=== PATIENT | male | born 1950 | race Caucasian/White ===

== ENCOUNTER 2016-08-06 05:00 | Inpatient (IN) | payer MEDICARE, OTHER ==
[2016-07-14 08:53] VITALS: BMI 39.0
--- NOTE | 2016-07-14 09:33 | PAT Medication Instructions ---
Service Date Jul 14, 2016. Current Home Medication List Amlodipine (Norvasc), 5 MG PO QAM Cholecalciferol (Vitamin D3), Unknown Dose PO QAM Fish Oil ([place]-3), 2 TAB PO QAM Pantoprazole (Protonix), 40 MG PO EVERY OTHER DAY Medication Instructions For Your Scheduled Surgery - Hold the following medications 2 weeks prior to surgery: Fish Oil ([place]-3), 2 TAB PO QAM - Hold the following medications the morning of surgery: Cholecalciferol (Vitamin D3), Unknown Dose PO QAM - Take the following medications the morning of surgery with a sip of water: Pantoprazole (Protonix), 40 MG PO EVERY OTHER DAY Amlodipine (Norvasc), 5 MG PO QAM If you have any questions please call us at [phone] or [phone] ( [place]) or [phone]
--- NOTE | 2016-07-14 10:19 | DIAGNOSTIC IMAGING REPORT ---
CHEST PREADMISSION(PA/LAT) CLINICAL HISTORY: PAT preoperative evaluation COMPARISON STUDY: No previous studies for comparison. FINDINGS: The bones soft tissues and hemidiaphragms are normal. The cardiomediastinal silhouette is normal. The lungs are clear. The pulmonary vasculature is normal. IMPRESSION: Negative chest. Electronically signed by: Russell Connor M.D. 07/14/2016 10:18 AM Dictated Date/Time: 07/14/2016 10:17 AM
[2016-07-14 10:26] LABS: BASO % 0.5 %; BASO ABS # 0.03 K/uL (0-0.2); COMPLETE YES; EOS % 0.7 %; HEMATOCRIT 47.6 % (42-52); IG% 0.2 %; LYMPH % 27.3 %; LYMPH ABS # 1.53 K/uL (1.2-3.4); MEAN CORPUSCULAR HEMOGLOBIN 30.3 pg (25-34); MEAN CORPUSCULAR HGB CONC 34.9 g/dl (32-36); MONO % 6.8 %; NEUT % 64.5 %; PLATELET COUNT 255 K/uL (130-400); RED BLOOD COUNT 5.47 M/uL (4.7-6.1)
[2016-07-14 10:38] LABS: URINE APPEARANCE CLEAR (CLEAR); URINE BILIRUBIN NEG (NEG); URINE COLOR ORANGE; URINE EPITHELIAL CELL AUTO 0-5 /lpf (0-5); URINE NITRITE NEG (NEG); URINE PH 5.5 (4.5-7.5); UROBILINOGEN NEG (NEG)
[2016-07-14 10:43] LABS: BUN/CREATININE RATIO 12.5 (10-20); CALCIUM 9.6 mg/dl (8.5-10.1); CREATININE 1.3 mg/dl (0.60-1.40)
[2016-07-14 10:46] LABS: MANUAL MICROSCOPIC REQUIRED? NO; REVIEW REQ? NO
[~2016-08-06] VITALS: Ht 175.3 cm; Wt 122.3 kg
[2016-08-06] VITALS (11 sets, daily range): BP systolic 110–157; BP diastolic 70–98; PULSE 67–97; TEMP 36.4–36.9; O2SAT 89–95; Ht 175.3 cm; Wt 122.3 kg
[~2016-08-06 05:00] MED LIST: AMLO-110 PO; CHOL1CHW10 PO; OMEG10007 PO; PANT40TA PO; ~ANCEF~ALLERGY NOTED TO ORDERED MEDICATION SCH
[2016-08-06] MEDS ORDERED: LACTATED RINGER'S 1000ML 1,000 ML IV SCH (06:00)
[2016-08-06] MEDS ORDERED: CEFAZOLIN 3000 MG/65 ML D5W IV SCH (06:00)
[2016-08-06] MEDS ORDERED: MIDAZOLAM HCL 1 MG/ML 2ML VIAL ONE (06:38)
[2016-08-06] MEDS ORDERED: FENTANYL CITRATE INJ 50 MCG/1 ML 2 ML VIAL ONE ×5 (06:38→10:12)
[2016-08-06] MEDS ORDERED: BUPIVACAINE/EPINEPHRINE 0.5% MPF 1:200,000 30 ML VIAL ONE (06:50)
[2016-08-06] MEDS ORDERED: SODIUM CHLORIDE 0.9% PF 50 ML VIAL ONE (06:51)
[2016-08-06] MEDS ORDERED: BACITRACIN 50000 UNIT VIAL ONE (06:51)
--- NOTE | 2016-08-06 07:26 | History & Physical Bridge Note ---
H&P Re-Evaluation Bridge Note: I have examined the patient, reviewed the History & Physical and in the interval since the performance of the History & Physical I have noted the following changes of clinical significance: No changes noted
--- NOTE | 2016-08-06 07:27 | History and Physical ---
History & Physical Date Aug 06, 2016. Chief Complaint back and leg pain History of Present Illness The patient is a 65 year old male with complaints of Additional History Hepatic Disease: No Endocrine Disorder: No Kidney Disease: No Hypertension: No Heart Disease: No Bleeding Tendencies: No Infectious Diseases: No Allergies Coded Allergies: Penicillins (Verified Allergy, Severe, RASH, 08/06/16) Home Medications Scheduled Amlodipine (Norvasc), 5 MG PO QAM Cholecalciferol (Vitamin D3), Unknown Dose PO QAM Fish Oil ([place]-3), 2 TAB PO QAM Pantoprazole (Protonix), 40 MG PO EVERY OTHER DAY Physical Examination Skin: warm/dry, no rash Eyes: normal inspection, EOMI, sclerae normal ENT: normal ENT inspection, pharynx normal Head: normocephalic, atraumatic Neck: supple, no adenopathy, trachea midline Respiratory/Chest: lungs clear, normal breath sounds, no respiratory distress Cardiovascular: regular rate, rhythm, no edema, no murmur Abdomen / GI: normal bowel sounds, non tender Back: normal inspection Extremities: normal inspection, normal range of motion Neurologic/Psych: no motor/sensory deficits, alert, normal reflexes, oriented x 3 Diagnosis lumbar stenosis Plan of Treatment decompression fusion L4-5 L5-S1
[2016-08-06] MEDS ORDERED: CLINDAMYCIN 600 MG/54 ML D5W IV ONE (07:30)
[2016-08-06] MEDS ORDERED: NURSING VERBAL MED ORDER ONE (07:45)
[2016-08-06] MEDS ORDERED: HYDROmorphone INJ 2 MG/ML SYR/VIAL ONE ×3 (07:57→10:12)
[2016-08-06] MEDS ORDERED: ALBUMIN HUMAN 5% 12.5 GM/250 ML VIAL IV ONE ×2 (08:32→09:24)
[2016-08-06] MEDS ORDERED: HYDROmorphone INJ 1 MG/ML SYR IV PRN (08:45)
[2016-08-06] MEDS ORDERED: ONDANSETRON INJ 2 MG/ML 2 ML VIAL IV PRN ×2 (08:45→10:15)
[2016-08-06] MEDS ORDERED: ATROPINE SULFATE 0.1 MG/ML 5ML SYR IV PRN (08:45)
[2016-08-06] MEDS ORDERED: EpHEDrine SULFATE INJ 50 MG/ML AMP IV PRN (08:45)
[2016-08-06] MEDS ORDERED: ROCURONIUM BROMIDE 10 MG/ML 5 ML VIAL ONE (09:56)
[2016-08-06] MEDS ORDERED: LIDOCAINE HCL 2% 2 ML VIAL (20MG/ML) ONE (09:56)
[2016-08-06] MEDS ORDERED: DEXAMETHASONE SOD INJ 4 MG/ML VIAL ONE (09:56)
[2016-08-06] MEDS ORDERED: PROPOFOL IV EMULSION 10 MG/ML 20 ML VIAL IV ONE (09:56)
[2016-08-06] MEDS ORDERED: FLOSEAL HEMOSTATIC MATRIX 10ML TOP ONE (10:06)
[2016-08-06] MEDS: LACTATED RINGER'S 1000ML 1,000 ML IV SCH ×3 (10:13→22:43)
[2016-08-06] MEDS ORDERED: SODIUM CHLORIDE 0.9% 1000ML 1,000 ML IV SCH (10:13)
--- NOTE | 2016-08-06 10:13 | [facility] Post Operative Brief Note ---
Immediate Operative Summary Operative Date Aug 06, 2016. Pre-Operative Diagnosis Spinal Stenosis Post-Operative Diagnosis Spinal Stenosis Procedure(s) Performed L4-S1 Decompression, Instrumented Fusion, Application interbody cage L5-S1 with use of Infuse and Celina Surgeon Dr. Luis Manuel Roman Power Station Operator Surgeon(s) Avtar Enrique PA-C Estimated Blood Loss 1200ml Findings stenosis Specimens no specimen
[2016-08-06] MEDS ORDERED: ACETAMINOPHEN IV 100 ML IV PRN (10:15)
[2016-08-06] MEDS ORDERED: hydrOXYzine HCL 25 MG TAB PO PRN (10:15)
[2016-08-06] MEDS ORDERED: FAMOTIDINE 20 MG TAB PO PRN (10:15)
[2016-08-06] MEDS ORDERED: PROMETHAZINE HCL INJ 12.5 MG in SODIUM CHLORIDE 0.9% 50ML 50 ML IV PRN (10:15)
[2016-08-06] MEDS ORDERED: BISACODYL 10 MG SUPP PR PRN (10:15)
[2016-08-06] MEDS ORDERED: ALUMINUM/MAGNESIUM SUSP 30 ML UDC PO PRN (10:15)
[2016-08-06] MEDS ORDERED: LORAZEPAM 0.5 MG TAB PO PRN (10:15)
[2016-08-06] MEDS ORDERED: LORAZEPAM INJ 0.5 MG in SYRINGE 0 ML IV PRN (10:15)
[2016-08-06] MEDS ORDERED: NALOXONE HCL 0.4 MG/1 ML VIAL/CARP IV PRN ×2 (10:15)
[2016-08-06] MEDS ORDERED: SOD PHOSPHATE/SOD BIPHOSPHATE ENEMA 132 ML BTL PR PRN (10:15)
[2016-08-06] MEDS ORDERED: ACETAMINOPHEN 500 MG TAB PO PRN (10:15)
[2016-08-06] MEDS ORDERED: METOCLOPRAMIDE HCL INJ 5 MG/ML 2 ML VIAL IV PRN (10:15)
[2016-08-06] MEDS ORDERED: DO NOT ADMINISTER PNEUMOCOCCAL VACCINE PRN ×2 (10:15)
[2016-08-06] MEDS ORDERED: DO NOT ADMINISTER FLU VACCINE PRN ×3 (10:15)
--- NOTE | 2016-08-06 10:15 | DIAGNOSTIC IMAGING REPORT ---
INTRAOPERATIVE RADIOGRAPHS CLINICAL HISTORY: L4-S1 spinal fusion. Fluoroscopy time: 22 seconds. FINDINGS: 3 spot fluoroscopic views of lumbar spine are presented. There is evidence of discectomy at L5-S1 with laminectomy and posterior fusion from L4 -S1. Interpedicular screws are present at all levels. Orthopedic hardware appears intact. IMPRESSION: Intraoperative images from L4 -S1 spinal fusion as above. Electronically signed by: Romero Mcknight M.D. 08/06/2016 10:13 AM Dictated Date/Time: 08/06/2016 10:13 AM
[2016-08-06] MEDS ORDERED: PHENYLEPHRINE 100MCG/ML 5ML SYR ONE (10:20)
[2016-08-06] MEDS ORDERED: EpHEDrine SULFATE 50MG/5ML SYR ONE (10:20)
[2016-08-06] MEDS ORDERED: GLYCOPYRROLATE INJ 0.2 MG/ML VIAL ONE (10:20)
[2016-08-06] MEDS ORDERED: NEOSTIGMINE METHYLSULFATE 1 MG/ML 10ML VIAL ONE (10:20)
[2016-08-06] MEDS ORDERED: ONDANSETRON INJ 2 MG/ML 2 ML VIAL ONE (10:20)
[2016-08-06] MEDS: HYDROmorphone HCL 0.5MG/ML 50 ML CASSETTE IV PRN ×4 (10:57→22:58)
[2016-08-06] MEDS: FENTANYL CITRATE INJ 50 MCG/1 ML 2 ML VIAL IV PRN ×4 (10:58→11:13)
--- NOTE | 2016-08-06 12:48 | Anesthesiology Progress Note ---
Anesthesia Post Op Note Date & Time Aug 06, 2016 at 12:41 Vital Signs Pain Intensity: 4 Vital Signs Past 12 Hours Date Time Temp Pulse Resp B/P Pulse Ox O2 Delivery O2 Flow Rate FiO2 08/06/16 12:21 145/88 08/06/16 12:20 135/92 08/06/16 12:19 91 13 08/06/16 12:19 93 13 93 08/06/16 12:14 91 17 08/06/16 12:14 17 08/06/16 12:09 83 18 08/06/16 12:09 99 18 93 08/06/16 12:06 122/77 08/06/16 12:04 72 11 08/06/16 12:04 73 11 92 08/06/16 12:01 126/79 08/06/16 11:59 34.5 78 16 126/79 94 Nasal Cannula 4 08/06/16 11:59 79 17 08/06/16 11:59 79 17 93 08/06/16 11:56 124/67 08/06/16 11:54 76 14 92 08/06/16 11:54 77 14 08/06/16 11:52 123/84 08/06/16 11:49 75 12 86 08/06/16 11:49 76 12 08/06/16 11:48 76 15 93 08/06/16 11:48 77 15 08/06/16 11:46 125/82 08/06/16 11:43 76 14 94 08/06/16 11:43 75 14 08/06/16 11:41 111/75 08/06/16 11:38 76 11 93 08/06/16 11:38 78 11 08/06/16 11:36 122/83 08/06/16 11:33 76 14 08/06/16 11:33 76 14 103/65 91 08/06/16 11:31 92/52 08/06/16 11:28 74 12 08/06/16 11:28 75 12 94 08/06/16 11:26 102/60 08/06/16 11:23 75 15 93 08/06/16 11:23 75 15 08/06/16 11:21 101/64 08/06/16 11:18 73 12 92 08/06/16 11:18 74 12 08/06/16 11:16 96/61 08/06/16 11:13 78 10 08/06/16 11:13 78 10 91 08/06/16 11:11 93/53 08/06/16 11:08 75 12 91 08/06/16 11:08 74 12 08/06/16 11:07 76 16 89 08/06/16 11:07 77 16 08/06/16 11:06 104/63 08/06/16 11:02 81 14 95 08/06/16 11:02 81 14 08/06/16 11:01 120/79 08/06/16 10:57 82 16 96 08/06/16 10:57 82 16 08/06/16 10:56 120/81 08/06/16 10:55 121/84 08/06/16 10:52 86 15 08/06/16 10:52 86 / 94 08/06/16 10:47 87 14 93 08/06/16 10:47 87 14 08/06/16 10:42 93 17 08/06/16 10:42 91 17 94 08/06/16 10:41 118/86 08/06/16 10:38 114/80 08/06/16 10:37 36.4 91 14 114/80 93 Mask 10 08/06/16 10:37 94 08/06/16 10:37 94 85 08/06/16 05:56 36.7 90 18 157/98 93 Room Air Notes Mental Status: alert / awake / arousable, participated in evaluation Pt Amnestic to Procedure: Yes Nausea / Vomiting: adequately controlled Pain: adequately controlled Airway Patency, RR, SpO2: stable & adequate BP & HR: stable & adequate Hydration State: stable & adequate Anesthetic Complications: no major complications apparent The patient is a 65 y/o with a h/o VITO on CPAP, HTN, DLD, GERD, ulcers, OA and obesity s/p L5-S1 decompression and fusion with Dr. Roman today. The patient remained hemodynamically stable intraoperatively. EBL was 1200cc, however starting Hgb was 16.6. He received 2500cc crystalloid and 1000cc Albumin. In recovery, the patient initially was saturating 93% on 6L NC and would desaturate to the mid 80s when falling asleep. His lungs were clear to auscultation bilaterally and he denied shortness of breath. His CPAP was applied. As the patient became more awake in recovery his oxygen saturation improved to 95-100% on 4L NC. He will be transferred to the floor where he is to be on continuous pulse oximetry. His CPAP is at his bedside, respiratory has attached a supplemental oxygen adaptor to it as well.
--- NOTE | 2016-08-06 14:12 | OPERATIVE REPORT ---
DATE OF OPERATION: 08/06/2016 PREOPERATIVE DIAGNOSIS: Spinal stenosis. POSTOPERATIVE DIAGNOSIS: Same. PROCEDURE PERFORMED: 1. Lumbar decompression, medial facetectomy, and foraminotomy L3-L4, L4-5, L5-S1. 2. Posterior spinal fusion L4-L5, L5-S1. 3. Placement posterior segmental instrumentation using Orthros rods and screws L4-L5, L5-S1. 4. Interbody fusion L5-S1. 5. Placement of PEEK cage 12 x 26 mm at L5-S1. 6. Placement of locally harvested morselized autograft posterior gutters. 7. Placement of Infuse collagen sponge combined with Mastergraft in posterior gutters and Celina bone grafting in interbody space. SURGEON: Dr. Luis Manuel Roman. MARKETING DIRECTOR: Due to the complex nature of the procedure, the entire surgery was performed with the assistant in nursing of MARK Mariano. The mechanic assistant, under direct supervision, was involved in the actual performance of all aspects of the surgical procedure including hemostasis, tissue retraction and incision, instrument management, patient positioning, and wound closure. ANESTHESIA: General. DISPOSITION: The patient awakened and taken to PACU in stable condition. HISTORY OF PATIENT'S PROBLEMS: This is a male well known to me that presents with the above-mentioned diagnosis. After an extensive course of nonoperative care, elected to undergo the above-mentioned procedure. Risks, benefits, pros, cons, and alternatives were outlined in detail preoperatively. DESCRIPTION OF PROCEDURE: Radha patient was met with preoperatively, the case discussed and all questions were addressed. At that point the patient was taken back to operative suite and after undergoing successful general intubation by the department of anesthesia was placed in prone position on Juilan table atop Jamal frame. All bony prominences were well padded and the eyes were inspected to ensure there was no external pressure placed upon them. At this point, lumbar spine was prepped and draped in normal sterile fashion. Sharp dissection with the assistance of Bovie cautery performed down to and exposing the lamina and transverse processes of L4, L5 and sacral ala bilaterally. From a caudal to cephalad fashion, complete laminectomy of L5, L4, partial laminectomy of L3 was performed addressing severe lateral recess and foraminal stenosis. Pedicle screws were then placed in L4, L5 and S1 levels bilaterally with assistance of fluoroscopy and appropriate size nina provisionally placed. Through a transforaminal approach on the left, a complete discectomy of L5-S1 was performed and endplates curetted to subcortical bleeding bone and a 12 x 26 mm PEEK cage filled with Celina bone grafting tapped into position. The rods were then locked into final position bilaterally the transverse processes of L4, L5 and sacral ala burred to subcortical bone. Infuse collagen sponge combined with Mastergraft and locally harvested morselized autograft was placed in the posterior gutters. A 7 flat CELINA drain was inserted. Incision was closed with 1-0 Vicryl in the fascia, 2-0 Vicryl subcutaneously, and lastly 4-0 Monocryl for final skin closure. Steri-Strips and sterile dressing placed. The patient was awakened and taken to PACU in stable condition. I attest to the content of the Intraoperative Record and any orders documented therein. Any exceptio ns are noted below.
[2016-08-06] MEDS: CLINDAMYCIN IV 600 MG in DEXTROSE 5% ADD-VANTAGE 50ML 50 ML IV SCH (16:21)
[2016-08-06] MEDS: DEXAMETHASONE INJ 6 MG in SYRINGE 0 ML IV SCH (18:10)
--- NOTE | 2016-08-06 18:22 | Medical Consult ---
Consultation Date of Consultation: Aug 06, 2016. Attending Physician: Luis Manuel Roman D.O. Reason for Consultation: Medical comanagement History of Present Illness Patient is a 65 y/o male with a h/o HTN, sleep apnea who is s/p decompression fusion L4-5, L5-S1 today by Dr. Roman. Medicine consulted for medical comanagement. Patient seen post-operatively. Pain well controlled on Dilaudid LOANS CONSULTANT. Patient endorses some nausea and an episode of emesis. Nursing staff reports 2 episodes of projectile vomiting post-operatively. Patient denies any SOB. Patient did have an estimated 1200cc blood loss intraoperatively. Patient's PCP is Dr. Dio Manley . Past Medical/Surgical History HTN Sleep apnea Social History Smoking Status: Former Smoker Allergies Coded Allergies: Penicillins (Verified Allergy, Severe, RASH, 08/06/16) Home Medications Reported Home Medications Medications Dose Route/Sig Max Daily Dose Days Date Category Dose Instructions Vitamin D3 (Cholecalciferol) Unknown Strength Chw Unknown Dose PO QAM 07/14/16 Reported [place]-3 (Fish Oil) 1 Ea Cap 2 Tab PO QAM 07/14/16 Reported PATIENT REPORTS BOTTLE READS 300 MG OF [place] 3 - FISH OIL 1000 MG ON BOTTLE Protonix (Pantoprazole Sodium) 40 Mg Tab 40 Mg PO EVERY OTHER DAY 07/14/16 Reported Norvasc (Amlodipine Besylate) 5 Mg Tab 5 Mg PO QAM 07/14/16 Reported Current Inpatient Medications Current Inpatient Medications Medications (Trade) Dose Ordered Sig/Aaron Route Start Time Stop Time Status Last Admin Dose Admin Lactated Ringer's 1,000 ml @ 15 mls/hr Q24H IV 08/06/16 06:00 08/07/16 05:59 08/06/16 06:15 15 MLS/HR Clindamycin Phosphate 600 mg/ Dextrose 54 ml @ 100 mls/hr Q8H IV 08/06/16 16:00 08/07/16 00:33 08/06/16 16:21 100 MLS/HR Dexamethasone Sodium Phosphate/ Syringe (Decadron Inj/ Syringe) 1.5 ml @ 1 mls/min Q8H IV 08/06/16 18:00 08/07/16 10:02 Ondansetron HCl (Zofran Inj) 4 mg Q6H PRN IV 08/06/16 10:15 09/05/16 10:14 Metoclopramide HCl (Reglan Inj) 10 mg Q6H PRN IV 08/06/16 10:15 09/05/16 10:14 08/06/16 16:19 10 MG Pneumococcal Polysaccharide Vaccine 1 ea PRN PRN N/A 08/06/16 10:15 09/05/16 10:14 Influenza Virus Vacc Triv Types A&B 1 ea PRN PRN N/A 08/06/16 10:15 09/05/16 10:14 Polyethylene (Miralax Powder Packet) 17 gm Q6 PO 08/08/16 06:00 09/07/16 05:59 Bisacodyl (Dulcolax Supp) 10 mg DAILY PRN ND 08/06/16 10:15 09/05/16 10:14 Magnesium Hydroxide (Milk Of Magnesia Susp) 30 ml DAILY PRN PO 08/06/16 10:15 09/05/16 10:14 Hydromorphone HCl (Dilaudid Inj) 0.5 mg Q3H PRN IV 08/07/16 06:00 08/21/16 05:59 Oxycodone HCl 5-10mg prn moderate to sev... Q4H PRN PO 08/07/16 06:00 08/21/16 05:59 Lactated Ringer's (Lr 1000ml) 1,000 ml @ 150 mls/hr Q6H40M IV 08/06/16 10:13 09/05/16 10:12 08/06/16 13:30 150 MLS/HR Acetaminophen 1000 mg 1,000 mg Q8H PRN PO 08/06/16 10:15 09/05/16 10:14 Acetaminophen (Ofirmev Iv) 100 ml @ 400 mls/hr Q8H PRN IV 08/06/16 10:15 09/05/16 10:14 Naloxone HCl (Narcan Inj) 0.1 mg Q5M PRN IV 08/06/16 10:15 09/05/16 10:14 Senna/Docusate Sodium (Senokot S Tab) 2 tab HS PO 08/06/16 21:00 09/05/16 20:59 Sodium Biphosphate/ Sodium Phosphate (Fleet Enema) 132 ml ONE PRN ND 08/06/16 10:15 09/05/16 10:14 Al Hydroxide/Mg Hydroxide (Maalox Susp) 30 ml Q6H PRN PO 08/06/16 10:15 09/05/16 10:14 Famotidine (Pepcid Tab) 20 mg Q12 PRN PO 08/06/16 10:15 09/05/16 10:14 Miscellaneous Information (Discontinue LOANS CONSULTANT) 1 ea TODAY@0600 ONCE N/A 08/07/16 06:00 08/07/16 06:01 Naloxone HCl (Narcan Inj) 0.1 mg Q5M PRN IV 08/06/16 10:15 08/07/16 06:00 Hydromorphone HCl 25 mg 25 mg PRN PRN IV 08/06/16 10:15 08/07/16 06:00 08/06/16 15:10 25 MG Sodium Chloride (Nss 1000ml) 1,000 ml @ 15 mls/hr Q24H IV 08/06/16 10:13 08/07/16 06:00 Amlodipine Besylate (Norvasc Tab) 5 mg DAILY PO 08/07/16 09:00 09/06/16 08:59 Pantoprazole Sodium (Protonix Tab) 40 mg DAILY PO 08/07/16 09:00 09/06/16 08:59 Hydromorphone HCl (Dilaudid Inj) 1 mg Q3H PRN IV 08/07/16 06:00 08/21/16 05:59 Review of Systems Constitutional- denies fevers or chills Eyes- denies sudden vision changes ENT- +sore throat post-operatively; denies congestion Pulmonary- denies SOB or cough Cardiac- denies chest pain or palpitations GI- denies abdominal pain; +nausea/vomiting post-operatively - +beltrán catheter post-operatively; denies dysuria Musculoskeletal- back pain controlled on pain medications; denies joint swelling Dermatologic- denies rash or bruising Neuro- denies focal weakness, numbness or tingling Psych- denies depression or anxiety . Physical Exam Date Time Temp Pulse Resp B/P Pulse Ox O2 Delivery O2 Flow Rate FiO2 08/06/16 16:52 36.9 85 18 120/85 92 Nasal Cannula 4.0 08/06/16 15:48 36.4 67 18 120/83 89 CPAP 4.0 08/06/16 14:50 36.4 76 18 128/83 91 Nasal Cannula 4.0 08/06/16 14:37 76 12 110/73 89 CPAP 4.0 08/06/16 13:50 68 16 111/73 91 17 13:23 36.4 77 16 117/70 90 Nasal Cannula 4.0 08/06/16 12:50 36.6 85 16 122/78 94 Nasal Cannula 4.0 08/06/16 12:50 Nasal Cannula 08/06/16 12:50 Nasal Cannula 4.0 08/06/16 12:21 145/88 08/06/16 12:20 135/92 08/06/16 12:19 91 13 08/06/16 12:19 93 13 93 08/06/16 12:14 91 17 08/06/16 12:14 17 08/06/16 12:09 83 18 08/06/16 12:09 99 18 93 08/06/16 12:06 122/77 08/06/16 12:04 72 11 08/06/16 12:04 73 11 92 08/06/16 12:01 126/79 08/06/16 11:59 34.5 78 16 126/79 94 Nasal Cannula 4 08/06/16 11:59 79 17 08/06/16 11:59 79 17 93 08/06/16 11:56 124/67 17 11:54 76 14 92 08/06/16 11:54 77 14 17 11:52 123/84 08/06/16 11:49 75 12 86 17 11:49 76 12 17 11:48 76 15 93 17 11:48 77 15 17 11:46 125/82 17 11:43 76 14 94 17 11:43 75 14 17 11:41 111/75 17 11:38 76 11 93 17 11:38 78 11 17 11:36 122/83 17 11:33 76 14 17 11:33 76 14 103/65 91 17 11:31 92/52 17 11:28 74 12 3/17/17 11:28 75 12 94 08/06/16 11:26 102/60 08/06/16 11:23 75 15 93 08/06/16 11:23 75 15 08/06/16 11:21 101/64 08/06/16 11:18 73 12 92 08/06/16 11:18 74 12 08/06/16 11:16 96/61 08/06/16 11:13 78 10 08/06/16 11:13 78 10 91 08/06/16 11:11 93/53 08/06/16 11:08 75 12 91 08/06/16 11:08 74 12 08/06/16 11:07 76 16 89 08/06/16 11:07 77 16 08/06/16 11:06 104/63 08/06/16 11:02 81 14 95 08/06/16 11:02 81 14 08/06/16 11:01 120/79 08/06/16 10:57 82 16 96 08/06/16 10:57 82 16 08/06/16 10:56 120/81 08/06/16 10:55 121/84 08/06/16 10:52 86 15 08/06/16 10:52 86 15 /26 94 08/06/16 10:47 87 14 93 08/06/16 10:47 87 14 08/06/16 10:42 93 17 08/06/16 10:42 91 17 94 08/06/16 10:41 118/86 08/06/16 10:38 114/80 08/06/16 10:37 36.4 91 14 114/80 93 Mask 10 08/06/16 10:37 94 08/06/16 10:37 94 85 08/06/16 05:56 36.7 90 18 157/98 93 Room Air General- awake; alert; NAD Eyes- EOMI; no scleral icterus Neck- no stridor; large circumference Lungs- CTA bilaterally anteriorly Heart- RRR; no m/r/g Abdomen- soft; NTND; nBS Extremities- TEDs and SCDs in place Neuro- no focal deficits Skin- no appreciable rash or bruise . Laboratory Results Last 24 Hours Test 08/06/16 06:25 Hepatitis C Antibody Screen NEG Assessment & Plan Patient is a 65 y/o male with a h/o HTN and VITO who is s/p decompression fusion L4-5, L5-S1 today by Dr. Roman. Patient does have some n/v post-operatively. Decompression fusion L4-5, L5-S1 - surgery by Dr. Roman on 08/06/16 - defer pain management to Ortho - bowel regimen - TEDs/SCDs for DVT prophylaxis per Ortho - monitor for blood loss HTN - continue amlodipine VITO - continue CPAP Thank you for this consultation. We will follow the patient with you during their hospital stay. You can reach a member of the [facility] Hospitalist Team 13/12 via pager @ [phone].
[2016-08-06 18:56] LABS: MEAN CELL VOLUME 87.6 fL (80-100); MEAN CORPUSCULAR HEMOGLOBIN 30.2 pg (25-34); MEAN CORPUSCULAR HGB CONC 34.5 g/dl (32-36); MEAN PLATELET VOLUME 9.6 fL (7.4-10.4); PLATELET COUNT 242 K/uL (130-400); RED BLOOD COUNT 4.34 M/uL (4.7-6.1); WHITE BLOOD COUNT 13.26 K/uL (4.8-10.8)
[2016-08-06 19:16] LABS: BUN/CREATININE RATIO 16.4 (10-20); CALCIUM 9.1 mg/dl (8.5-10.1); CREATININE 1.2 mg/dl (0.60-1.40); POTASSIUM 4.4 mmol/L (3.5-5.1)
[2016-08-06] MEDS ORDERED: COUGH DROP (SUGAR FREE) LOZ 24 LOZ/1 BOX PO PRN (20:15)
[2016-08-06] MEDS ORDERED: NURSING DECISION MEDICATION ORDER SCH (20:15)
[2016-08-06] MEDS: DOCUSATE SODIUM/SENNA 50/8.6MG TAB PO SCH (21:08)
[2016-08-06] MEDS ORDERED: LORAZEPAM 0.5 MG TAB PO SCH (23:30)
[2016-08-07] MEDS: CLINDAMYCIN IV 600 MG in DEXTROSE 5% ADD-VANTAGE 50ML 50 ML IV SCH (00:16)
[2016-08-07] MEDS ORDERED: LORAZEPAM 0.5 MG TAB PO ONE (01:15)
[2016-08-07] MEDS: DEXAMETHASONE INJ 6 MG in SYRINGE 0 ML IV SCH ×2 (01:49→12:10)
[2016-08-07 03:18] VITALS: BP 133/75; PULSE 91; TEMP 37.2; O2SAT 90
[2016-08-07] MEDS ORDERED: HYDROmorphone INJ 1 MG/ML SYR IV PRN (06:00)
[2016-08-07] MEDS ORDERED: HYDROmorphone INJ 0.5 MG/0.5 ML SYR IV PRN (06:00)
[2016-08-07] MEDS ORDERED: DC PCA ONE (06:00)
[2016-08-07] MEDS ORDERED: NURSING DECISION MEDICATION ORDER SCH (06:00)
[2016-08-07 06:11] LABS: COMPLETE YES; HEMATOCRIT 35.5 % (42-52); IG% 0.2 %; LYMPH % 5.9 %; LYMPH ABS # 0.79 K/uL (1.2-3.4); MEAN CELL VOLUME 86.8 fL (80-100); MEAN CORPUSCULAR HEMOGLOBIN 29.6 pg (25-34); MEAN CORPUSCULAR HGB CONC 34.1 g/dl (32-36); MEAN PLATELET VOLUME 9.8 fL (7.4-10.4); MONO % 3.1 %; NEUT % 90.8 %; PLATELET COUNT 249 K/uL (130-400); RED BLOOD COUNT 4.09 M/uL (4.7-6.1); WHITE BLOOD COUNT 13.34 K/uL (4.8-10.8)
[2016-08-07 06:52] LABS: BUN/CREATININE RATIO 15.9 (10-20); CALCIUM 9.1 mg/dl (8.5-10.1); CREATININE 1.1 mg/dl (0.60-1.40); POTASSIUM 4.5 mmol/L (3.5-5.1)
[2016-08-07 07:42] VITALS: BP 134/79; PULSE 97; TEMP 36.5; O2SAT 97
[2016-08-07] MEDS: PANTOprazole SOD 40 MG TAB PO SCH (08:19)
[2016-08-07] MEDS: AMLODIPINE BESYLATE 5 MG TAB PO SCH (08:19)
[2016-08-07] MEDS ORDERED: RXC5 PO (09:40)
--- NOTE | 2016-08-07 09:41 | Discharge Instructions ---
Discharge Instructions Date of Service Aug 07, 2016. Admission Reason for Admission: Spinal Stenosis Discharge Discharge Diagnosis / Problem: stenosis Discharge Goals Goal(s): Improve function Activity Recommendations Activity Limitations: per Instructions/Follow-up section . Instructions / Follow-Up Instructions / Follow-Up ACTIVITY RECOMMENDATIONS: SELF CARE INSTRUCTIONS AFTER THORACIC/LUMBAR FUSIONS 1. You may walk to your tolerance. It is good exercise for your legs and back. Expect some back and intermittent leg aches and pains. 2. You may perform "counter-top" level activities (make a sandwich, audrey with a project, etc.). 3. No bending or lifting of more than 10 pounds or back twisting of any nature (roll like a log when turning in bed). 4. You may ride in a car for 20-30 minutes at a time. No driving until after your first visit with your doctor. 5. Frequent changes of position and restricting sitting to 30 minutes at a time will help limit the amount of back spasms and stiffness you may experience. 6. You may discontinue the use of ambulatory aids (cane, crutches, etc.) once your strength and confidence allow. 7. You may clay products machine operator the shower and let water strike your incision when you arrive home at least once daily. Do not take a tub bath, sit in a hot tub or go into a swimming pool until after your first recheck in the office. SPECIAL CARE INSTRUCTIONS: VERY IMPORTANT TO READ AND REVIEW A. Your surgical incision has been closed with a cosmetic suture under the skin that will dissolve in about 6 weeks. In 14 days, you can use a pair of clean scissors and cut the suture that is left outside of the skin at the ends of your incision. 1. The small skin tapes can be removed 7 days after surgery if they have not fallen off by that point. 2. You may keep the wound open to air as much as possible to promote healing after post-op day number 5 unless told otherwise by your doctor. 3. If you think the wound looks like it is becoming infected (redness or worsening drainage) and/or you are experiencing fever, chill or worsening back pain and muscle spasms, contact the office so that we may evaluate you as soon as possible. B. Complications are uncommon, but please contact us if you have any signs or symptoms of: 1. wound infection (fever higher than 102.5 degrees F, redness, separation of wound, drainage, or increasing pain from the incision) 2. blood clots in legs (pain, swelling, redness and warmth in legs) 3. urinary tract infection (fever higher than 102.5 degrees F, burning upon urination or increased frequency of urination) 4. nerve problems (inability to walk on your toes or heels, numbness, loss of bowel or bladder control) 5. any other symptoms that concern you C. Please call the office at if you have any concerns or questions about your operation or recovery. D. No smoking! Smoking drastically decreases the chance of a solid fusion. E. Do not take any anti-inflammatory medications (Indocin, Advil, Motrin, Aspirin, Naprosyn, etc.) as these may inhibit the chance of a solid fusion. Tylenol is okay to take for pain. MANAGING PAIN AFTER SPINAL SURGERY 1. Narcotic medication is intended for short-term use and will be provided for surgical pain. Surgical pain usually lasts for a period of 4-6 weeks. Narcotic medication includes Percocet, Vicodin, Darvocet, Tylenol #3 or Lortab. 2. Longer-term pain is more appropriately treated with non-narcotic medication such as Tylenol ES. 3. Muscle spasm is not appropriately treated with narcotics. Muscle relaxers such as Soma, Flexeril or Skelaxin can be used along with Tylenol ES. 4. Remember that we all live with some "aches and pains". This is not unusual or uncommon after an injury or as we get older. a. Back pain is expected and may include muscle spasms for 4 to 6 weeks after surgery. The pain should gradually improve. If the pain worsens for no apparent reason, please contact the office. b. Intermittent leg pain may also be experienced and should not be concerned about unless it worsens for no apparent reason. If so, please contact the office. 5. We will provide appropriate medication within the normal guidelines of their prescribed use. We will also be very cautious and aware of potential abuse and extended duration of patients' medication needs. a. Pain medications are for your comfort and to assist with sleep and rest so that the tissue can heal. They are not provided in order to return to normal activity and should not be used through the day. To do so or worsening pain at night can result from ongoing tissue damage and development of tolerance to the prescribed medicine. 6. Please allow 2-3 days to process refills. Prescriptions will not be mailed but must be picked up at the office. FOLLOW UP VISIT: Keep your scheduled follow-up appointment. Any questions, please call the office at . Current Hospital Diet Patient's current hospital diet: Regular Diet Discharge Diet Recommended Diet: Regular Diet Procedures Procedures Performed: L4-S1 Decompression, Instrumented Fusion, Application interbody cage L5-S1 with use of Infuse and Celina Pending Studies Studies pending at discharge: no Medical Emergencies . Who to Call and When: Medical Emergencies: If at any time you feel your situation is an emergency, please call 911 immediately. . Non-Emergent Contact Non-Emergency issues call your: Primary Care Provider . "Provider Documentation" section prepared by Luis Manuel Roman. VTE Core Measure Inpt VTE Proph given/why not?: Mony Rainey, SCD's
--- NOTE | 2016-08-07 10:16 | PROGRESS NOTE ---
DATE: 08/07/2016 DATE: 08/07/2016. SUBJECTIVE: Postop day 1. Back pain controlled. Leg pain markedly improved. Vital signs stable. T-max 37.2. CELINA drained 90 mL last shift. Hematocrit this a.m. is 35.5. OBJECTIVE: On exam patient is in chair at bedside. Has good strength to testing, appears comfortable. ASSESSMENT: Status post multilevel lumbar decompression and fusion. PLAN: At this time, will initiate physical therapy, advance his bowel regimen and anticipate possible home Tuesday.
[2016-08-07 11:01] VITALS: BP 116/75; PULSE 95; TEMP 36.6; O2SAT 91
--- NOTE | 2016-08-07 14:25 | Progress Note ---
Internal Med Progress Note Date of Service: Aug 07, 2016. Provider Documentation: SUBJECTIVE: sitting on the chair comfortably says ambulated ok denies any chest pain or sob while ambulated has some pain at surgery site eating ok constipated OBJECTIVE: Vital Signs-as noted below Exam: General-alert and oriented. Not in distress ENT-normal hearing Neck-no neck masses Lungs-cta b/l no wheezing present no crackles Heart-s1 and s2 heard, regular rate and rhythm no murmurs Abdomen-soft bowel sounds present non tender no distension musculoskeletal s/p back surgery dressing and drain intact Extremities-no edema no erythema Neuro-alert and awake moves extremities Lab data as noted below. ASSESSMENT & PLAN: Patient is a 65 y/o male with a h/o HTN and VITO who is s/p decompression fusion L4-5, L5-S1 today by Dr. Roman. Patient does have some n/v post-operatively. Decompression fusion L4-5, L5-S1 surgery by Dr. Roman on 08/06/16 management as per Ortho HTN on amlodipine stable will monitor VITO To continue CPAP DVT PROPHYLAXIS as per ortho DISPOSITION as per ortho Vital Signs: Date Time Temp Pulse Resp B/P Pulse Ox O2 Delivery O2 Flow Rate FiO2 08/07/16 11:01 36.6 95 16 116/75 91 Room Air 08/07/16 07:42 36.5 97 16 134/79 97 Room Air 08/07/16 03:18 37.2 91 16 133/75 90 BiPAP 08/06/16 23:15 36.8 97 14 152/80 94 Nasal Cannula 4.0 08/06/16 23:15 Nasal Cannula 4.0 08/06/16 19:38 36.6 86 18 146/80 95 Nasal Cannula 4.0 08/06/16 17:00 90 Nasal Cannula 4.0 Humidified Oxygen 08/06/16 16:52 36.9 85 18 120/85 92 Nasal Cannula 4.0 08/06/16 15:48 36.4 67 18 120/83 89 CPAP 4.0 08/06/16 14:50 36.4 76 18 128/83 91 Nasal Cannula 4.0 08/06/16 14:37 76 12 110/73 89 CPAP 4.0 Lab Results: Results Past 24 Hours Test 08/06/16 18:45 08/07/16 05:18 Range/Units White Blood Count 13.26 13.34 4.8-10.8 K/uL Red Blood Count 4.34 4.09 4.7-6.1 M/uL Hemoglobin 13.1 12.1 14.0-18.0 g/dL Hematocrit 38.0 35.5 42-52 % Mean Corpuscular Volume 87.6 86.8 80-100 fL Mean Corpuscular Hemoglobin 30.2 29.6 25-34 pg Mean Corpuscular Hemoglobin Concent 34.5 34.1 32-36 g/dl RDW Standard Deviation 40.6 40.8 36.4-46.3 fL RDW Coefficient of Variation 12.6 12.6 11.5-14.5 % Platelet Count 242 249 130-400 K/uL Mean Platelet Volume 9.6 9.8 7.4-10.4 fL Sodium Level 140 140 136-145 mmol/L Potassium Level 4.4 4.5 3.5-5.1 mmol/L Chloride Level 103 103 98-107 mmol/L Carbon Dioxide Level 25 32 21-32 mmol/L Anion Gap 12.0 5.0 3-11 mmol/L Blood Urea Nitrogen 20 18 7-18 mg/dl Creatinine 1.20 1.10 0.60-1.40 mg/dl Est Creatinine Clear Calc Drug Dose 79.3 86.5 ml/min Estimated GFR () 73.1 81.2 Estimated GFR (Non- 63.1 70.1 BUN/Creatinine Ratio 16.4 15.9 10-20 Random Glucose 174 136 70-99 mg/dl Calcium Level 9.1 9.1 8.5-10.1 mg/dl Neutrophils (%) (Auto) 90.8 % Lymphocytes (%) (Auto) 5.9 % Monocytes (%) (Auto) 3.1 % Eosinophils (%) (Auto) 0.0 % Basophils (%) (Auto) 0.0 % Neutrophils # (Auto) 12.11 1.4-6.5 K/uL Lymphocytes # (Auto) 0.79 1.2-3.4 K/uL Monocytes # (Auto) 0.41 0.11-0.59 K/uL Eosinophils # (Auto) 0.00 0-0.5 K/uL Basophils # (Auto) 0.00 0-0.2 K/uL Immature Granulocyte % (Auto) 0.2 % Immature Granulocyte # (Auto) 0.03 0.00-0.02 K/uL
[2016-08-07] MEDS: OXYCODONE HCL IR 5 MG TAB (IMMEDIATE RELEASE) PO PRN (14:34)
[2016-08-07 15:01] VITALS: BP 129/77; PULSE 100; TEMP 36.6; O2SAT 94
[2016-08-07] MEDS: LORAZEPAM 1 MG TAB PO PRN (20:48)
[2016-08-07] MEDS: DOCUSATE SODIUM/SENNA 50/8.6MG TAB PO SCH (20:48)
[2016-08-07 23:00] VITALS: BP 123/73; PULSE 73; TEMP 36.7; O2SAT 90
[2016-08-08] MEDS: POLYETHYLENE (MIRALAX) 17 GM PACK PO SCH ×4 (06:14→23:47)
[2016-08-08 07:04] VITALS: BP 131/82; PULSE 86; TEMP 36.5; O2SAT 93
[2016-08-08] MEDS: PANTOprazole SOD 40 MG TAB PO SCH (07:39)
[2016-08-08] MEDS: AMLODIPINE BESYLATE 5 MG TAB PO SCH (07:39)
[2016-08-08] MEDS: MAGNESIUM HYDROXIDE SUSP 30 ML UDC PO PRN (07:43)
[2016-08-08] MEDS: OXYCODONE HCL IR 5 MG TAB (IMMEDIATE RELEASE) PO PRN ×2 (07:45→17:39)
--- NOTE | 2016-08-08 12:33 | PROGRESS NOTE ---
DATE: 08/08/2016 SUBJECTIVE: Postop day #2. Back pain controlled. Leg pain improved. Vital signs stable. T-max 36.5. CELINA drained 80 mL. Hematocrit this a.m. is 35.5. PHYSICAL EXAMINATION: The patient is ambulating in the sams. He has good strength to testing. Appears comfortable. ASSESSMENT: Status post multilevel lumbar decompression and fusion. PLAN: At this time, we will maintain the CELINA drain another 24 hours and anticipate home tomorrow.
[2016-08-08 15:26] VITALS: BP 125/83; PULSE 82; TEMP 36.9; O2SAT 94
--- NOTE | 2016-08-08 19:31 | Progress Note ---
Internal Med Progress Note Date of Service: Aug 08, 2016. Provider Documentation: SUBJECTIVE: ambulating ok denies sob or chest pain eating ok constipated some soreness at surgery site OBJECTIVE: Vital Signs-as noted below Exam: General-alert and oriented. Not in distress ENT-normal hearing Neck-no neck masses Lungs-cta b/l no wheezing present no crackles Heart-s1 and s2 heard, regular rate and rhythm no murmurs Abdomen-soft bowel sounds present non tender no distension musculoskeletal s/p back surgery dressing and drain intact Extremities-no edema no erythema Neuro-alert and awake moves extremities Lab data as noted below. ASSESSMENT & PLAN: Patient is a 65 y/o male with a h/o HTN and VITO who is s/p decompression fusion L4-5, L5-S1 today by Dr. Roman. Patient does have some n/v post-operatively. Decompression fusion L4-5, L5-S1 surgery by Dr. Roman on 08/06/16 management as per Ortho. Anemia acute blood loss post op hb 16 to 12.1 will f/u labs HTN on amlodipine stable continue to monitor VITO To continue CPAP DVT PROPHYLAXIS as per ortho DISPOSITION as per ortho Vital Signs: Date Time Temp Pulse Resp B/P Pulse Ox O2 Delivery O2 Flow Rate FiO2 08/08/16 15:26 36.9 82 18 125/83 94 Room Air 08/08/16 07:45 Room Air 08/08/16 07:04 36.5 86 18 131/82 93 Room Air 08/07/16 23:00 36.7 73 16 123/73 90 CPAP 08/07/16 20:40 Room Air
[2016-08-08] MEDS: DOCUSATE SODIUM/SENNA 50/8.6MG TAB PO SCH (21:02)
[2016-08-08] MEDS: LORAZEPAM 1 MG TAB PO PRN (21:02)
[2016-08-08 23:10] VITALS: BP 105/66; PULSE 70; TEMP 36.7; O2SAT 93
[2016-08-09] MEDS: OXYCODONE HCL IR 5 MG TAB (IMMEDIATE RELEASE) PO PRN (04:36)
[2016-08-09] MEDS: POLYETHYLENE (MIRALAX) 17 GM PACK PO SCH (04:37)
[2016-08-09 05:47] LABS: HEMATOCRIT 34.1 % (42-52); MEAN CORPUSCULAR HEMOGLOBIN 29.8 pg (25-34); MEAN CORPUSCULAR HGB CONC 34.3 g/dl (32-36); MEAN PLATELET VOLUME 9.6 fL (7.4-10.4); PLATELET COUNT 267 K/uL (130-400); RED BLOOD COUNT 3.92 M/uL (4.7-6.1); WHITE BLOOD COUNT 7.96 K/uL (4.8-10.8)
[2016-08-09 06:18] LABS: BUN/CREATININE RATIO 19.4 (10-20); CALCIUM 8.5 mg/dl (8.5-10.1); CREATININE 1.2 mg/dl (0.60-1.40); POTASSIUM 3.9 mmol/L (3.5-5.1)
--- NOTE | 2016-08-09 07:44 | Anesthesiology Progress Note ---
Anesthesia Post Op Note Date & Time Aug 09, 2016 at 07:44 Vital Signs Vital Signs Past 12 Hours Date Time Temp Pulse Resp B/P Pulse Ox O2 Delivery O2 Flow Rate FiO2 08/08/16 23:10 36.7 70 16 105/66 93 CPAP Notes Mental Status: alert / awake / arousable, participated in evaluation Pt Amnestic to Procedure: Yes Nausea / Vomiting: adequately controlled Pain: adequately controlled Airway Patency, RR, SpO2: stable & adequate BP & HR: stable & adequate Hydration State: stable & adequate Anesthetic Complications: no major complications apparent
[2016-08-09 07:47] VITALS: BP 129/95; PULSE 80; TEMP 36.7; O2SAT 93
[2016-08-09 07:57] VITALS: O2SAT 93
[2016-08-09] MEDS: MAGNESIUM HYDROXIDE SUSP 30 ML UDC PO PRN (08:04)
[2016-08-09] MEDS: AMLODIPINE BESYLATE 5 MG TAB PO SCH (08:28)
[2016-08-09] MEDS: PANTOprazole SOD 40 MG TAB PO SCH (08:28)
[2016-08-09 10:50] VITALS: BP 129/95; PULSE 80; TEMP 36.7; O2SAT 93
--- NOTE | 2016-08-09 18:19 | DISCHARGE SUMMARY ---
PRINCIPAL DIAGNOSIS: Spinal stenosis. HOSPITAL COURSE FOLLOWS: On 08/06/2016 the patient underwent lumbar decompression and fusion, tolerated this well and taken to the orthopedic floor postoperatively. Postop day #1, he was up and ambulatory and progressed to postop day #2. Postop day #3, he was feeling marked improvement and subsequently discharged home with home health. Discharge orders and instructions can be found on the chart for further review.
== END 2016-08-09 11:45 | disposition home health service (06) | DRG 460 ==
LOC: ENRESERVDT → ENRESERVTM → C.ACU 05:00 → C.3E 07:30
PROVIDERS: ADMIT Orthopaedic Surgery Orthopaedic Surgery of the Spine; ATTEND Orthopaedic Surgery Orthopaedic Surgery of the Spine
PROC: 0SG00A1 (ICD-10-PCS; principal; 2016-08-06 10:15)
PROC: 0SG30A1 (ICD-10-PCS; principal; 2016-08-06 10:15)
DX: M48.07 Spinal stenosis, lumbosacral region (principal); D62 Acute posthemorrhagic anemia; I10 Essential (primary) hypertension; G47.33 Obstructive sleep apnea (adult) (pediatric); Z87.891 Personal history of nicotine dependence; Z88.0 Allergy status to penicillin